=== PATIENT | male | born 1990 | race Caucasian/White ===

== ENCOUNTER 2017-03-28 21:26 | Emergency (ER) | payer BC ==
[~2017-03-28] VITALS: Ht 177.8 cm; Wt 63.5 kg
[2017-03-28 21:32] VITALS: BP 149/97
--- NOTE | 2017-03-28 21:57 | NUR ---
PT TAKEN TO [facility] FROM [facility]
--- NOTE | 2017-03-28 22:11 | NUR ---
PT RETURN FROM XRAY TO LOBBY
--- NOTE | 2017-03-28 22:19 | NUR ---
PT TAKEN TO BED 5
--- NOTE | 2017-03-28 22:28 | NUR ---
PATIENT PRESENTS TO ED WITH C/O ABD CRAMPS SINCE THIS AFTERNOON WITH DIARHHEA DENIES N/V. SKIN IS PINK/WARM/DRY; AAOX4 WITH EVEN AND STEADY GAIT; LUNGS CLEAR BL; HR EVEN AND REGULAR; PT DENIES ANY FEVER, CP, SOB, OR COUGH AT THIS TIME; PATIENT STATES PAIN OF 0/10 AT THIS TIME; VSS; PATIENT POSITIONED FOR COMFORT; HOB ELEVATED; BEDRAILS UP X2; BED DOWN. ER MD MADE AWARE OF PT STATUS.
--- NOTE | 2017-03-28 22:49 | NUR ---
Dr. Peñaloza evaluating patient at bedside.
[2017-03-28 23:25] VITALS: BP 123/62
--- NOTE | 2017-03-28 23:25 | NUR ---
Patient discharged with v/s stable. Written and verbal after care instructions given and explained. Patient verbalized understanding. Ambulatory with steady gait. All questions addressed prior to discharge. Advised to follow up with PMD.
== END 2017-03-28 23:25 | disposition home or self-care (01) ==
LOC: MED 21:26
DX: K92.1 Melena (principal)